=== PATIENT | female | born 1995 | race Two or more races ===

== ENCOUNTER 2025-03-17 10:35 | Emergency (ER) | payer OTHER ==
[~2025-03-17] VITALS: Ht 149.9 cm; Wt 39.0 kg
[2025-03-17] MEDS ORDERED: FAMOtidine 10 MG/ML (4ML VIAL) IV ONE (11:00)
[2025-03-17] MEDS ORDERED: MORPHINE SULFATE 4 MG/ML VIAL IV ONE ×2 (11:00→14:45)
[2025-03-17] MEDS ORDERED: FAMOTIDINE/PF 20 MG/2 ML VIAL ONE (11:10)
[2025-03-17 11:49] LABS: PH,URINE 5.5 (5.0-8.0); URINE APPEARANCE Turbid; URINE BILIRRUBIN Small (NEGATIVE); URINE BLOOD Large; URINE COLOR Orange; URINE GLUCOSE Negative (NEGATIVE); URINE KETONE Negative (NEGATIVE); URINE LEUKOCYTE Small; URINE NITRATE Negative
[2025-03-17 11:53] LABS: URINE BACTERIA 243.5 uL (0.0-1933); URINE WBC 54.1 uL (0.0-23.2)
[2025-03-17 11:58] LABS: URINE PROTEIN 300 (NEGATIVE); URINE RBC > 10558.9 uL (0.0-20.8)
[2025-03-17 12:00] LABS: HEMATOCRIT 36.8 % (36.0-45.00); HEMOGLOBIN 12.3 g/dL (12.0-15.00); MEAN CORPUSCULAR HGB CONC 33.3 g/dl (32.0-36.0); PLATELET COUNT 137 K/uL (150-450); RED BLOOD COUNT 4.24 M/uL (4.00-6.00); RED CELL DISTRIBUTION WIDTH 13.7 % (11.5-14.5)
[2025-03-17 12:31] LABS: INR 1.03; PARTIAL THROMBOPLASTIN TIME 23.7 SECONDS (22.0-34.0); PROTHROMBIN TIME 11.2 SECONDS (9.0-11.5)
[2025-03-17 12:38] LABS: ALKALINE PHOSPHATASE 40 U/L (50-136); ALT/SGPT 13 U/L (12-78); ANION GAP 13 (10.0-20.0); AST/SGOT 14 U/L (15-37); BLOOD UREA NITROGEN 19 mg/dL (7-18); BUN CREA RATIO 28 (7.0-25.0); CALCIUM 9.1 mg/dL (8.5-10.1); CARBON DIOXIDE 24 mEq/L (21-32); CHLORIDE 107 mmol/L (98-107); CREATININE SERUM 0.67 mg/dL (0.55-1.02); GFR 105.58; GLOBULINA 3.3 G/DL (2.4-3.5); GLUCOSE FASTING 97 mg/dL (65-100); OSMOLALITY SERUM 282 MOSM/KG (275-295); POTASSIUM 4.04 mEq/L (3.5-5.1); SODIUM 140 mmol/L (136-145); TOTAL PROTEIN 7.3 gm/dL (6.4-8.2)
[2025-03-17 12:54] LABS: HCG QUANTITATIVE < 1 mUI/mL (1-3)
[2025-03-17 12:55] LABS: BILIRUBIN TOTAL 1.02 mg/dL (0.3-1.2)
[2025-03-17] MEDS ORDERED: PIPERACILLIN/TAZOBACTAM SODIUM 3.375 GM VIAL IV ONE (14:45)
[2025-03-17] MEDS ORDERED: ZOFRAN8 MG PO (15:35)
[2025-03-17] MEDS ORDERED: NORFLEX100MG PO (15:35)
[2025-03-17] MEDS ORDERED: BACTRIM DS TAB1 EACH PO (15:35)
[2025-03-17] MEDS ORDERED: PEPCID AC20 MG PO (15:35)
== END 2025-03-17 16:15 | disposition home or self-care (01) ==
LOC: ER 10:36
PROVIDERS: General Practice
DX: R10.31 Right lower quadrant pain (principal); N83.209 Unspecified ovarian cyst, unspecified side; R10.2 Pelvic and perineal pain